=== PATIENT | female | born 1970 | race African-American/Black ===

== ENCOUNTER 2018-10-28 09:41 | Emergency (ER) | payer OTHER ==
[~2018-10-28] VITALS: Ht 167.6 cm; Wt 106.7 kg
[~2018-10-28 09:41] MED LIST: COLACE100 MG PO; DULCOLAX5 MG PO; IBUPROFEN 200200 M1 PO; IBUPROFEN 400400 M2 PO; IRON325 PO; MAGNESIUM CITR296 ML PO; TUMS PO
[2018-10-28] MEDS ORDERED: NORCO 5-325 TA1 EACH PO (10:02)
[2018-10-28 10:41] LABS: URINE BILIRUBIN NEGATIVE (Negative); URINE BLOOD 3+ (Negative); URINE CLARITY CLEAR; URINE COLOR YELLOW; URINE GLUCOSE-RANDOM* NEGATIVE (Negative); URINE KETONES NEGATIVE (Negative); URINE LEUKOCYTES-REFLEX NEGATIVE (Negative); URINE NITRITE-REFLEX NEGATIVE (Negative); URINE PROTEIN (DIPSTICK) 2+ (Negative); URINE SPECIFIC GRAVITY 1.025 (1.005-1.035); URINE UROBILINOGEN 0.2 E.U./dl (0.2-1.0)
[2018-10-28 10:45] LABS: HEMOGLOBIN 6.9 gm/dL (12.0-15.0)
[2018-10-28 10:47] LABS: ABSOLUTE NEUTROPHILS 5.4 thou/uL (1.4-8.2); BASOPHILS 0.9 % (0.0-2.0); EOSINOPHILS 1.2 % (0.0-3.0); HEMATOCRIT 21.3 % (37.0-47.0); LYMPHOCYTES 16.8 % (24.0-44.0); MCH 21.6 pg (26.0-34.0); MCHC 32.5 g/dL (28.0-37.0); MCV 66.6 fL (80.0-100.0); MONOCYTES 4.4 % (1.0-8.0); PLATELET COUNT 435 thou/uL (150-400); POLYS 76.7 % (36.0-66.0); RDW 18.1 % (10.5-14.5)
[2018-10-28 10:50] LABS: CALCIUM 8.6 mg/dL (8.5-10.1); CREATININE 0.9 mg/dL (0.6-1.0); POTASSIUM 3.2 mmol/L (3.5-5.1)
[2018-10-28 11:00] LABS: CASTS None Seen /LPF (None Seen); CRYSTALS None Seen /LPF (None Seen); SQUAMOUS 0-3 Few /LPF (0-3); URINE RBC 0-2 Rare /HPF (0-2)
[2018-10-28 11:01] LABS: BACTERIA-REFLEX 1-9 Few /HPF (None Seen); URINE WBC-REFLEX 0-5 Rare /HPF (0-5)
[2018-10-28 12:24] VITALS: BP 138/90; BP 141/84; BP 153/81
[2018-10-28 12:39] LABS: HYPOCHROMASIA 2+; MICROCYTES 2+
[2018-10-28 12:40] LABS: ANISOCYTOSIS 2+
[2018-10-28] MEDS ORDERED: PROVERA10 MG PO (13:19)
[2018-10-28 15:35] VITALS: BP 151/81
== END 2018-10-28 15:36 | disposition home or self-care (01) ==
LOC: ER 09:41
PROVIDERS: Student in an Organized Health Care Education/Training Program
DX: D64.9 Anemia, unspecified (principal); N93.8 Other specified abnormal uterine and vaginal bleeding; F17.210 Nicotine dependence, cigarettes, uncomplicated; Z98.890 Other specified postprocedural states; Z91.040 Latex allergy status

== ENCOUNTER 2020-07-28 07:14 | Emergency (ER) | payer OTHER ==
[~2020-07-28] VITALS: Ht 167.6 cm; Wt 104.3 kg
[~2020-07-28 07:14] MED LIST changes: +NORCO 5-325 TA1 EACH PO; +PROVERA10 MG PO
[2020-07-28 07:36] LABS: BASOPHILS 0.3 % (0.0-2.0); EOSINOPHILS 1.6 % (0.0-3.0); HEMATOCRIT 30.9 % (37.0-47.0); HEMOGLOBIN 10.2 gm/dL (12.0-15.0); LYMPHOCYTES 14.3 % (24.0-44.0); MCH 27.2 pg (26.0-34.0); MCHC 33.1 g/dL (28.0-37.0); MCV 82.1 fL (80.0-100.0); MONOCYTES 4.1 % (1.0-8.0); PLATELET COUNT 278 thou/uL (150-400); POLYS 79.7 % (36.0-66.0); RBC 3.76 mil/uL (4.20-5.00); RDW 16.5 % (10.5-14.5); WBC 7.6 thou/uL (4.0-11.0)
[2020-07-28 07:45] LABS: CALCIUM 8.1 mg/dL (8.5-10.1); CREATININE 0.8 mg/dL (0.6-1.0); POTASSIUM 3.7 mmol/L (3.5-5.1)
[2020-07-28 09:00] VITALS: BP 151/76
== END 2020-07-28 09:00 | disposition left against medical advice (07) ==
LOC: ER 07:14
PROVIDERS: Emergency Medicine
DX: R42 Dizziness and giddiness (principal); F17.210 Nicotine dependence, cigarettes, uncomplicated; Z91.040 Latex allergy status; Z79.899 Other long term (current) drug therapy; Z98.890 Other specified postprocedural states